=== PATIENT | female | born 1965 | race Caucasian/White ===

== ENCOUNTER → 2018-04-28 | Outpatient (CLI) | payer OTHER ==
[2013-10-13 15:07] VITALS: BP 152/102
[~2018-04-28] MED LIST: LORA1TAB47 PO; NAPR-514 PO
--- NOTE | 2018-04-28 12:50 | RAD ---
EXAM: Chest, 2 views HISTORY: COPD. COMPARISON: None. FINDINGS: 2 views the chest are obtained. There is hyperinflation and hyperlucency due to emphysema. There is no pleural effusion or pneumothorax. The heart is normal in size. There is suspected right upper lobe linear scarring. There are few calcified granulomas. The heart is normal in size. IMPRESSION: 1. Emphysema with suspected right apical scarring. 2. No acute pulmonary finding. Electronically signed by: Isha Carter MD (04/28/2018 12:47 PM) [place] [id number]
== END | disposition home or self-care (01) ==
LOC: RAD 11:56
PROVIDERS: ATTEND Internal Medicine
DX: J43.9 Emphysema, unspecified (principal); J84.10 Pulmonary fibrosis, unspecified
CPT/HCPCS: 71046

== ENCOUNTER → 2018-07-09 | Outpatient (CLI) | payer OTHER ==
[2013-10-13 15:07] VITALS: BP 152/102
--- NOTE | 2018-07-09 11:07 | RAD ---
2 views of each knee 07/09/2018 12:00 AM Indication: Bilateral knee pain Comparison: None Findings: There is no acute fracture or dislocation. Articular surfaces are uninterupted and smooth. Soft tissues are unremarkable. Impression: No evidence of acute osseous abnormality. Electronically signed by: Popeye Hamilton MD (07/09/2018 11:04 AM) [id number]
--- NOTE | 2018-07-09 11:08 | RAD ---
2 views of the lumbar spine 07/09/2018 INDICATION: Low back pain COMPARISON STUDY: None available FINDINGS: No evidence of acute fracture or alignment abnormality is identified. Vertebral body heights and disc spaces are maintained. Minimal grade 1 anterolisthesis of L5 on S1 is seen. Mild degenerative facet arthrosis is present within the inferior lumbar spine. No acute soft tissue changes are identified. Evidence of prior tubal ligation noted. IMPRESSION: Mild degenerative changes of the lumbar spine without evidence of acute osseous abnormality Electronically signed by: Popeye Hamilton MD (07/09/2018 11:05 AM) [id number]
== END | disposition home or self-care (01) ==
LOC: RAD 10:35
DX: M47.816 Spondylosis without myelopathy or radiculopathy, lumbar region (principal); M43.17 Spondylolisthesis, lumbosacral region; Z98.51 Tubal ligation status
CPT/HCPCS: 72100; 73560